=== PATIENT | female | born 1955 | race Two or more races ===

== ENCOUNTER 2025-01-05 16:15 | Emergency (ER) | payer BC, SELFPAY ==
[2025-01-05 16:19] VITALS: BP 174/115
[2025-01-05 16:56] VITALS: BMI 25.8
--- NOTE | 2025-01-05 16:57 | ED.GENMED ---
History of Present Illness
General
Chief Complaint: Musculo-Skeletal Complaint
Source: patient
Time Seen by Provider: 01/05/25 16:44
History of Present Illness
History of Present Illness:
69-year-old female with past medical history of breast cancer and GERD status post right bunionectomy this past Monday done by [facility] in [place] who presents to the emergency department at the request of the on-call orthopedic surgeon for
evaluation after patient noticed some increased pain to the right lower extremity, a warming sensation, limited range of motion of the digits (patient reports she was able to curl her toes yesterday and Monday but not today), shortness of breath and
chest pressure. Patient denies any fevers, chills, rigors or any other symptoms. She is not on any anticoagulant medication. Denies any new traumas.
Past History
Past History
ED Past Medical History: Cancer and GERD
ED Past Surgical History: Orthopedic
Social History
Tobacco: Non-smoker
Alcohol: None
Drug: None
Personal:
Living: with family
Review of Systems
Review of Systems
All Other Systems: ROS reviewed and negative except as documented in HPI and ROS
Phy Exam
Physical Exam
Physical Exam:
GENERAL: Alert , in no apparent distress
HEAD: Normocephalic atraumatic
EYE: conjunctiva clear
NECK: Supple
ENT: o/p clr, mmm.
CARDIAC: Tachycardic rate and normal rhythm
LUNGS: Clear breath sounds bilaterally, no acute respiratory distress, no wheezes/rales/rhonchi
NEUROLOGICAL: Alert and oriented
SKIN: Warm and dry, skin intact.
MUSCULOSKELETAL: well perfused. CR < 2 sec, sensation intact to foot. easily palpable tibial and popliteal pulse. Large splint to right foot
PSYCH: Normal and appropriate interaction.
Scores
Heart Failure Risk
Heart Failure Risk Score: Not Applicable
Heart Score for Chest Pain Patients
STEMI patient?: Not applicable
Withdrawal Assessment of Alcohol
Withdrawal Assessment Completed?: Not applicable
Course
Orders/Labs/Results
Orders:
Orders
01/05/25 16:24
EKG [Electrocardiogram (*1)] Urgent
Reason for Study: Tachycardia
EKG- Treatment ONCE
01/05/25 16:53
Venous Doppler Lwr Ext Rt [US Periph Venous LOWER Ext RT] Urgent
Comment:
Reason For Exam: pain, post op
01/05/25 17:08
Basic Metabolic Panel Urgent
Complete Blood Count/With Diff Urgent
D-Dimer Urgent
NT-proBNP Urgent
Troponin I Urgent
Abnormal Lab Results
01/05/25
17:08
D-Dimer 0.58 H ug/mlFEU
(0.00-0.50)
BUN 19 H mg/dl
(7-17)
Glucose 143 H mg/dl
(70-99)
01/05/25 17:08
01/05/25 17:08
Vital Signs
Initial and Last Documented VS:
Initial Vital Signs
Temp Pulse Resp BP Pulse Ox
97.7 F 130 20 174/115 99
01/05/25 16:19 01/05/25 16:19 01/05/25 16:19 01/05/25 16:19 01/05/25 16:19
Last Documented Vital Signs
Temp Pulse Resp BP Pulse Ox
97.7 F 100 18 124/76 100
01/05/25 16:19 01/05/25 18:32 01/05/25 18:32 01/05/25 18:32 01/05/25 18:32
MDM/Problems Addressed
Differential Diagnosis Includes:
DVT
PAD/PVD
Arterial Occlusion
Post op pain
PE
PTX
ACS
MDM/Problems Addressed:
69-year-old female presenting to the ER for evaluation of right lower extremity symptoms, also noted chest discomfort and shortness of breath. Patient overall very well-appearing and in no acute distress. She is mildly tachycardic. Will check an
ultrasound rule out DVT. Her extremity is warm and well-perfused, I do not have concern for an acute arterial occlusion. Labs ordered. Reassessment following
*Radiology
Radiology exam reviewed: radiology read reviewed
*Pulse Oximetry
SaO2: 99
Oxygen Mode of Delivery: Room air
Patient hypoxic: no
*EKG
Heart Rate: 102
Rate: tachycardiac
Rhythm: sinus
Ischemia: T-wave inversion (Inferior leads)
*[facility] Support Specialist Interpretation
Rate: tachycardiac
Heart Rate: 105
Rhythm: sinus
*Critical Care Note
Total Time (30-74mins, 75-104mins- exclusive of procedures): Not Applicable
Patient Management
Escalation/DeEscalation of care consider admission/obs:
Ultrasound negative for any acute pathologies. Patient declines chest x-ray stating she had breast cancer and does not want any additional radiation to this affected area. Her age-adjusted D-dimer is within normal limits. I have no suspicion for
PE as a diagnosis at this time. Encourage patient to follow-up with her orthopedic physician tomorrow. Aware of return precautions to the ER.
ED Attending Note
-
Portions of this chart may have been created with voice recognition software.� Occasional wrong word or��sound alike� substitutions may have occurred due to the inherent limitations of voice recognition software.
Discharge Plan
Departure
Patient Disposition: Home (Routine Discharge)
Date of Disposition: 01/05/25
Time of Disposition: 17:55
Patient with high blood pressure during this ER visit?: Yes
Discharge Problem:
Post surgical complication
Instructions: Managing pain after surgery
Interventions
Interventions:
*Risk Screen - Suicide Last Done: 01/05/25 16:24
*General Assessment Last Done: 01/05/25 16:24
*Neglect/Abuse Screening Last Done: 01/05/25 16:24
*ED- Fall Risk Assessment Last Done: 01/05/25 18:32
*ED COVID-19 Vaccine History Last Done: 01/05/25 16:24
*ED Influenza Vaccine History Last Done: 01/05/25 16:24
*Nursing Disposition Last Done: 01/05/25 18:32
ED-Musculoskeletal Assessment Last Done: 01/05/25 18:32
Discharge Date and Time
Discharge Date/Time: 01/05/25 18:34
Print Language: IRISH
[2025-01-05 17:17] LABS: Hematocrit 41.7 % (37.0-47.0); Hemoglobin 14.0 g/dL (12.0-16.0); Mean Corp Hgb Conc. 33.6 g/dL (33.0-37.0); Mean Corpuscular Volume 86.9 fL (81.0-99.0); Nucleated Red Blood Cells % 0 %; Platelet Count 189 10^3/uL (130-400); Red Cell Dist. Width 12.5 % (11.5-14.5)
[2025-01-05 17:28] LABS: D-Dimer 0.58 ug/mlFEU (0.00-0.50)
[2025-01-05 17:39] LABS: Blood Urea Nitrogen 19 mg/dl (7-17); Calcium 10.1 mg/dl (8.4-10.2); Carbon Dioxide 25 mmol/L (22-30); Chloride 107 mmol/L (98-107); Estimated Creatinine Clearance 73 ml/min; Glucose 143 mg/dl (70-99); Potassium 4.0 mmol/L (3.5-5.1); Sodium 141 mmol/L (135-145); eGFR > 60.00
[2025-01-05 17:40] LABS: Troponin I < 0.012 ng/ml
[2025-01-05 18:32] VITALS: BP 124/76
== END 2025-01-05 18:34 | disposition home or self-care (01) ==
LOC: EMR 16:15
PROVIDERS: Physician Assistant Medical; EMERGENCY PHYSICIAN Emergency Medicine
DX: G89.18 Other acute postprocedural pain (principal); M79.604 Pain in right leg; R07.89 Other chest pain; R06.02 Shortness of breath; Z85.3 Personal history of malignant neoplasm of breast
CPT/HCPCS: 99284; 80048; 83880; 84484; 85025; 85379; 93005; 93971